=== PATIENT | female | born 1985 | race Caucasian/White ===

== ENCOUNTER 2025-02-13 08:01 | Outpatient (CLI) | payer OTHER, SELFPAY ==
--- NOTE | ~2025-02-13 | US_ITS ---
US right upper quadrant INDICATION: Right upper quadrant pain with diarrhea. PROCEDURE: Realtime right upper abdominal ultrasound. COMPARISON: No prior studies for comparison. FINDINGS: The pancreas is normal without focal mass or pancreatic ductal dilation. Liver echotexture is normal without focal mass or intrahepatic biliary dilatation. There is normal directional flow in the portal vein. The gallbladder is normal without stones, gallbladder wall thickening or pericholecystic fluid. Common bile duct measures 3 mm. No sonographic Ga's sign. Right renal echotexture is normal without hydronephrosis, mass or stone. Right kidney measures 10.9 cm. IMPRESSION: 1: Normal limited abdominal ultrasound. Reviewed, dictated and finalized at location O.
== END 2025-02-13 08:02 | disposition home or self-care (01) ==
PROVIDERS: PCP Family Medicine; Visit Provider Family Medicine
DX: R10.11 Right upper quadrant pain (principal)
CPT/HCPCS: 76705